=== PATIENT | male | born 1945 ===

== ENCOUNTER 2018-05-22 10:15 | Outpatient (CLI) | payer OTHER | END 2018-05-22 10:16 | disposition home or self-care (01) | LOC: C.LAB 10:15 | DX: Z01.818 Encounter for other preprocedural examination (principal) ==

== ENCOUNTER 2018-05-27 09:55 | Inpatient (IN) | payer MEDICAID, OTHER ==
[2018-05-26 13:28] VITALS: BMI 24.6
[2018-05-27] MEDS ORDERED: Ciprofloxacin 400mg/200ml D5W 400 MG/200 ML BAG IVPB ONE (11:00)
[2018-05-27] MEDS ORDERED: Lidocaine 2% Jelly (Uro-Jet) ONE ×2 (11:00→12:04)
[2018-05-27] MEDS ORDERED: Propofol 10 mg/ml Inj (20 ML) ONE (11:04)
[2018-05-27] MEDS ORDERED: Midazolam 2 MG/2 ML VIAL ONE (11:04)
--- NOTE | 2018-05-27 12:26 | PCM.SURG1 ---
Surgeon's Initial Post Op Note - Surgeon's Notes Surgeon: nora Social Security Assessor: none Type of Anesthesia: General Endo Anesthesia Administered By: Mindi Pre-Operative Diagnosis: urinary retention Operative Findings: bph Post-Operative Diagnosis: bph Operation Performed: cystoscopy tur prostate gland Specimen/Specimens Removed: prostate tissue Estimated Blood Loss: EBL {In ML}: 5 Blood Products Given: N/A Drains Used: No Drains Post-Op Condition: Good Date of Surgery/Procedure: 05/17/18 Time of Surgery/Procedure: 12:26
[2018-05-27] MEDS ORDERED: HYDROmorphone 0.5 mg/0.5 ml ISec IVP PRN (12:29)
[2018-05-27] MEDS ORDERED: Oxycodone/Acetaminophen 5/325 mg Tab PO PRN (12:44)
[2018-05-27] MEDS ORDERED: Ciprofloxacin 400mg/200ml D5W 400 MG/200 ML BAG IVPB SCH (13:30)
[2018-05-27] MEDS ORDERED: Lactated Ringer's 1,000 ML IV ONE (14:00)
--- NOTE | 2018-05-27 14:24 | CON ---
DATE: 05/26/[address] Soria is doing surgery in this gentleman tomorrow, TURP. REASON FOR CONSULTATION: Requested to see this 73-year-old male, scheduled by Dr. Soria for cystoscopy and TURP tomorrow. Some of the preadmission testing had been done elsewhere as well as some of them done at [facility]. Past medical history is basically unremarkable. 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 He denies any chest discomfort. No dizziness. No syncope. No shortness of breath. He is in great shape, a nice gentleman. ALLERGIES: HE HAS NO ALLERGIES TO ANY MEDICATIONS. HE DENIES ANY ALLERGIES TO ANY FOODS EITHER. SOCIAL HISTORY: Never smoked. MEDICATIONS: His only medications at this point in time are Flomax 0.4 mg twice a day that has been going on for several weeks now due to the BPH and urinary symptoms. He takes an occasional Advil. REVIEW OF SYSTEMS: From the cardiopulmonary view point, once again, he denies any exertional or resting chest discomfort, shortness of breath, dizziness or syncope. No palpitations. Rest of the review of systems otherwise negative. PHYSICAL EXAMINATION GENERAL: Reveals a senile male, very pleasant, in very good health. His height is 5 feet 4 inches, weight 129 pounds. VITAL SIGNS: Blood pressure is 110/65, pulse is regular about 70 per minute, respiratory rate is unremarkable. SKIN: Warm, dry. No cyanosis or edema. HEAD, EARS, NOSE AND THROAT: Basically normal for his age. NECK: Supple. No lymphadenopathy or thyromegaly. CHEST: Shows symmetrical expansion. LUNGS: Totally clear to auscultation. CARDIOVASCULAR: Jugular veins, carotids and peripheral pulses are all normal, physiological for his age. Heart sounds normal in intensity and regular. No significant murmurs or gallops. ABDOMEN: Unremarkable. Recently identified to have a slight left inguinal hernia, nothing spectacular. CENTRAL NERVOUS SYSTEM: Alert and oriented. No deficit whatsoever. EXTREMITIES: He has some arthritic changes in the hands due to ageing. DIAGNOSTIC DATA: Preadmission testings at least include a chest x-ray with no acute cardiopulmonary disease. Heart size normal. No infiltrates. Perhaps, a tortuous COPD as reported by the Radiology, but nothing spectacular. EKG totally normal. PT and PTT done at [facility] also unremarkable. Some of the preadmission testings appeared to have been done at another institution. I have been unable to locate them here in [facility]. The son and the patient are here. We are here looking in the chart, trying to locate these results; however, some results were given to me by Dr. Soria's office showing normal renal function with a creatinine of 0.8. CBC basically unremarkable. Hemoglobin of 14, hematocrit of 43, WBC count of 10. The basic metabolic profile was also normal, and PSA mildly elevated at 7.3. IMPRESSION: Medically stable, benign cardiologic findings. CONCLUSION AND SUGGESTIONS: Presently cleared to proceed with surgery scheduled for tomorrow. The case was discussed here with the son. He is aware of the situation and potential complications because of age and etc. Hopefully, rest of the preadmission testing will appear tomorrow in [facility]. If unable to locate them, then perhaps we have to repeat them right before the surgery, although I am sure they are somewhere. Sesar Caballero MD cc: Yaniv Soria MD MTDD
[2018-05-27 20:39] VITALS: RESP 20
[2018-05-27] MEDS: Ciprofloxacin 400mg/200ml D5W 400 MG/200 ML BAG IVPB SCH (21:06)
--- NOTE | 2018-05-28 00:38 | OP ---
PROCEDURE DATE: 05/27/2018 PREOPERATIVE DIAGNOSES: Urinary retention, benign prostatic hyperplasia. POSTOPERATIVE DIAGNOSES: Benign prostatic hyperplasia, urinary retention. OPERATIONS: Cystoscopy, transurethral resection of the prostate gland. SURGEON: Yaniv Soria MD GROSS FINDING: Good bladder capacity. Moderate trabeculated bladder. No tumors or stones were observed during emptying or filling of the bladder. Ureteral orifices not visualized because of moderate-sized median lobe, and large lateral lobes of the prostate gland meeting at a midline showed prostatic urethra. Membranous and pendulous urethra normal. TECHNIQUE: The patient was placed in lithotomy position. The external genitalia was prepped and draped in the usual sterile fashion. A #18 panendoscope was used to do cystoscopy because of some narrowing at the anterior urethra. Then, the panendoscope was passed into the bladder with some resistance also at the membranous urethra. Findings as above. After cystoscopy was terminated, the urethra was dilated to #28 Throckmorton sounds. Then, a #26 Brumfield resectoscope was introduced in the bladder. The resection was started at the moderate-sized median lobe. It was resected completely, and then, the right lateral lobe and the left lateral lobe were resected. Bleeders were thoroughly fulgurated. Also, the floor of the prostatic urethra was resected as well as the roof. All the tissue was removed by way of a Larry syringe. Minimal bleeding was present during the procedure. A #22, 30mL three-way Rodriguez was left indwelling to be connected to continued bladder irrigation with normal saline. The patient returned to recovery room in satisfactory condition. Yaniv Soria MD
[2018-05-28 06:49] LABS: BLOOD UREA NITROGEN 12 mg/dL (9-20); CALCIUM 8.8 mg/dl (8.6-10.4); GFR NON-AFRICAN AMERICAN > 60
[2018-05-28 06:51] LABS: HEMOGLOBIN 12.7 g/dL (12.0-18.0); MEAN CELL VOLUME 87.2 fL (80.0-94.0); MEAN CORPUSCULAR HEMOGLOBIN 30.3 pg (27.0-31.0); MEAN CORPUSCULAR HGB CONC 34.8 g/dL (33.0-37.0); MEAN PLATELET VOLUME 8.6 fL (7.2-11.7); RBC 4.19 Mil/uL (4.40-5.90); RED CELL DISTRIBUTION WIDTH 13.3 % (11.5-14.5); WHITE BLOOD COUNT 9.4 K/uL (4.8-10.8)
[2018-05-28 07:48] VITALS: BP 116/62; PULSE 65; TEMP 98.6; O2SAT 95
[2018-05-28] MEDS: Ciprofloxacin 400mg/200ml D5W 400 MG/200 ML BAG IVPB SCH (10:00)
== END 2018-05-28 15:48 | disposition home or self-care (01) | DRG 500 ==
LOC: EDBD → C.SDS 09:55 → MERGE 11:30 → C.9S 12:27 → C.5S 20:27
PROVIDERS: ADMIT Urology; ATTEND Urology
PROC: 0VB08ZX Excision of Prostate, Via Natural or Artificial Opening Endoscopic, Diagnostic (ICD-10-PCS; principal; 2018-05-27 11:30)
DX: C61 Malignant neoplasm of prostate (principal); N40.1 Benign prostatic hyperplasia with lower urinary tract symptoms; R33.8 Other retention of urine

== ENCOUNTER 2018-06-03 09:30 | Outpatient (CLI) | payer SELFPAY | END 2018-06-03 09:31 | disposition home or self-care (01) | LOC: C.CTH 09:30 | DX: C61 Malignant neoplasm of prostate (principal) ==